=== PATIENT | female | born 2000 | race African-American/Black ===

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

== ENCOUNTER 2018-02-28 21:27 | Emergency (ER) | payer OTHER ==
[~2018-02-28] VITALS: Ht 157.5 cm; Wt 50.4 kg
[~2018-02-28 21:27] MED LIST changes: +MACROBID100 MG PO
[2018-02-28 23:05] LABS: HEMATOCRIT 38.8 % (36.0-46.0); HEMOGLOBIN 12.8 G/DL (11.9-15.5); MCH 27.9 PG (29.0-34.0); MCV 84.7 FL (83-99); PLATELET COUNT 198 K/uL (156-360); RBC DIS.WIDTH-CV 13.3 % (11.8-14.6); RBC DIS.WIDTH-SD 41.3 % (39-53); RED BLOOD COUNT 4.58 M/uL (3.80-5.20); WHITE BLOOD COUNT 5.5 K/uL (4.1-10.2)
[2018-02-28 23:16] LABS: CHLORIDE 109 mEq/L (99-109); POTASSIUM 3.5 mEq/L (3.7-5.4); SODIUM 138 mEq/L (136-147)
[2018-02-28 23:17] LABS: GLUCOSE 77 mg/dL (70-99)
[2018-02-28 23:21] LABS: CREATININE 0.8 mg/dL (0.6-1.3); GFR ESTIMATE (CALCULATED) > 59 mL/min/
[2018-02-28 23:22] LABS: UREA NITROGEN (BUN) 15 mg/dL (9-23)
[2018-02-28 23:25] LABS: TROP-I INTERPRETATION NEGATIVE; TROPONIN-I < 0.01 ng/mL (0.0-0.30)
[2018-02-28 23:40] LABS: QUANTITATIVE HCG < 4.0 MIU/ML
[2018-03-01 01:11] VITALS: BP 134/88
== END 2018-03-01 01:12 | disposition home or self-care (01) ==
LOC: EME → EDBD 21:27 → EME 03-01 01:12
PROVIDERS: Emergency Medicine
DX: E86.0 Dehydration (principal); R51 Headache; J45.909 Unspecified asthma, uncomplicated; F17.200 Nicotine dependence, unspecified, uncomplicated
CPT/HCPCS: 70450; 71046; 80048; 84484; 84702; 85027; 93005; 99281; 99285; J1200; J2765; J7030